=== PATIENT | male | born 1990 | race Caucasian/White ===

== ENCOUNTER 2016-10-19 00:28 | Emergency (ER) | payer OTHER ==
--- NOTE | 2016-10-19 01:55 | ED ORDER SUMMARY ---
..... Patient: DARI ALFREDO OrderSheet [facility] VisitID: [id number] [address] [place] [address] 26y, M Registration Date/Time: 10/19/2016 ORDER SHEET Weight: 108.8 kg (stated) Allergies: No Known Drug Allergy GENERAL ORDERS: Ribs Unilat w PA Chest Right Urgent (01:09 10/19/2016 Lynn ROMERO) (Ack 1:13 Omar) (1:19 RFay) MEDICATION ORDERS: IV FLUIDS: ORDER SHEET NOTES: [Electronically signed by Garcia Mcallister R.N. (02:04 10/19/2016)] [Electronically signed by Zee Alegria MD (18:09 10/20/2016)] [Electronically locked/signed by Garcia Mcallister R.N. (02:04 10/19/2016)]
--- NOTE | 2016-10-19 01:55 | ED ORDER SUMMARY ---
..... Patient: DARI ALFREDO OrderSheet [facility] VisitID: [id number] [address] [place] [address] 26y, M Registration Date/Time: 10/19/2016 ORDER SHEET Weight: 108.8 kg (stated) Allergies: No Known Drug Allergy GENERAL ORDERS: Ribs Unilat w PA Chest Right Urgent (01:09 10/19/2016 Lynn ROMERO) (Ack 1:13 Omar) (1:19 RFay) MEDICATION ORDERS: IV FLUIDS: ORDER SHEET NOTES: [Electronically signed by Garcia Mcallister R.N. (02:04 10/19/2016)] [Electronically signed by Zee Alegria MD (18:09 10/20/2016)] [Electronically locked/signed by Garcia Mcallister R.N. (02:04 10/19/2016)]
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
--- NOTE | 2016-10-20 18:09 | ED MED RECONCILIATION SUMMARY ---
Patient: DARI ALFREDO Medication Reconciliation Report [facility] VisitID: [id number] [place] [address] 26y, M Registration Date/Time: 10/19/2016 Weight: 108.8 kg Height/Length: 69 in. BMI: 35.4 ALLERGIES: No Known Drug Allergy The patient's Home Medications are listed below: NONE. The source(s) of the original Home Medication information: patient The following Medications were given to the patient in the Emergency Department: None. The following Medications were prescribed to the patient: Hydrocodone/APAP 5mg / 325mg: take 1 orally every 6 hours as needed for pain. Dispense five (5). No refill. -- Zee Alegria MD Ibuprofen 800 mg tablets: take 1 tablet orally every 8 hours as needed for pain. Dispense fifteen (15). No refill. -- Zee Alegria MD
--- NOTE | 2016-10-20 18:09 | ED DISCHARGE INSTRUCTIONS ---
Patient: DARI ALFREDO General Instructions [facility] VisitID: [id number] [place] [address] 26y, M Registration Date/Time: 10/19/2016 Minor blunt chest injury. Right anterior chest wall contusion. INSTRUCTIONS Apply ice for 20 minutes three times a day as needed and until better. Don't apply ice directly to skin and don't use while asleep. (Your chest and rib x-rays look good--no broken ribs.). Warnings: GENERAL WARNINGS: Return or contact your physician immediately if your condition worsens or changes unexpectedly, if not improving as expected, or if other problems arise. Prescription Medications: Hydrocodone/APAP 5mg / 325mg: take 1 orally every 6 hours as needed for pain. Dispense five (5). No refill. Ibuprofen 800 mg tablets: take 1 tablet orally every 8 hours as needed for pain. Dispense fifteen (15). No refill. Follow-up: Follow up with your doctor as needed. Understanding of the discharge instructions verbalized by patient. ADDITIONAL INFORMATION Rib Contusion A rib contusion is a bruise to one or more rib bones. It may cause pain, tenderness, swelling and a purplish discoloration. There may be a sharp pain with each breath. A rib contusion takes a few days, to a few weeks to heal. A small crack (fracture) in the rib may cause the same symptoms as a rib contusion. The small crack may not be seen on a chest x-ray. However, the treatment of these two conditions are the same. Home Care: Rest. You should not be doing any heavy lifting or strenuous exertion, or any activity that causes pain. Apply an ice pack (ice cubes in a plastic bag, wrapped in a towel) over the injured area for 20 minutes every 1-2 hours the first day. Continue with ice packs 3-4 times a day for the next two days, then as needed for the relief of pain and swelling. You may use acetaminophen (Tylenol) or ibuprofen (Motrin, Advil) to control pain, unless another pain medicine was prescribed. [NOTE: If you have chronic liver or kidney disease or ever had a stomach ulcer or GI bleeding, talk with your doctor before using these medicines.] Follow Up with your doctor during the next week or as directed. Get Prompt Medical Attention if any of the following occur: Shortness of breath Increasing chest pain with breathing or congested cough Dizziness, weakness or fainting New or worsening of abdominal pain Fever of 100.4F (38C) or higher, or as directed by your healthcare provider You have been given the following additional information: Rib Contusion (Electronically signed by Zee Alegria MD 10/20/2016 18:09)
--- NOTE | 2016-10-20 18:09 | ED MAR SUMMARY ---
..... Medication Administration Record [facility] [address] [place] [id number] Patient: DAIR ALFREDO Visit ID: [id number] 26y, M Weight: 108.8 kg Height/Length: 69 in BMI: 35.4 ALLERGIES: No Known Drug Allergy
--- NOTE | 2016-10-20 18:09 | ED MAR SUMMARY ---
..... Medication Administration Record [facility] [address] [place] [id number] Patient: DARI ALFREDO Visit ID: [id number] 26y, M Weight: 108.8 kg Height/Length: 69 in BMI: 35.4 ALLERGIES: No Known Drug Allergy
--- NOTE | 2016-10-20 18:09 | ED MED RECONCILIATION SUMMARY ---
Patient: DARI ALFREDO Medication Reconciliation Report [facility] VisitID: [id number] [place] [address] 26y, M Registration Date/Time: 10/19/2016 Weight: 108.8 kg Height/Length: 69 in. BMI: 35.4 ALLERGIES: No Known Drug Allergy The patient's Home Medications are listed below: NONE. The source(s) of the original Home Medication information: patient The following Medications were given to the patient in the Emergency Department: None. The following Medications were prescribed to the patient: Hydrocodone/APAP 5mg / 325mg: take 1 orally every 6 hours as needed for pain. Dispense five (5). No refill. -- Zee Alegria MD Ibuprofen 800 mg tablets: take 1 tablet orally every 8 hours as needed for pain. Dispense fifteen (15). No refill. -- Zee Alegria MD
== END 2016-10-19 02:02 | disposition home or self-care (01) ==
LOC: ED SRH 00:28
DX: S20.211A Contusion of right front wall of thorax, initial encounter (principal); S06.9X9A Unspecified intracranial injury with loss of consciousness of unspecified duration, initial encounter; V28.0XXA Motorcycle driver injured in noncollision transport accident in nontraffic accident, initial encounter; Y93.I9 Activity, other involving external motion; Y92.838 Other recreation area as the place of occurrence of the external cause; Y99.8 Other external cause status; I10 Essential (primary) hypertension; F17.200 Nicotine dependence, unspecified, uncomplicated